=== PATIENT | male | born 1935 | race Caucasian/White ===

== ENCOUNTER 2017-10-24 10:58 | Inpatient (IN) | payer OTHER, MEDICARE ==
[~2017-10-24] VITALS: Ht 182.9 cm; Wt 95.7 kg
--- NOTE | 2017-10-24 11:05 | NUR ---
fever, body aches, and chills since last night. NAD noted, vss, resp even and unlabored. pt was put on monitor, waiting for md hardwick.
[2017-10-24] MEDS ORDERED: ACETAMINOPHEN ES 500 MG TABLET ONE (11:22)
[2017-10-24] MEDS ORDERED: IV NS 0.9% 1,000 ML BAG IV ONE (11:30)
[2017-10-24] MEDS ORDERED: ACETAMINOPHEN ES 500 MG TABLET PO ONE (11:30)
[2017-10-24 11:49] LABS: BASOPHILS # (AUTO) 0.2 /CMM (0.0-0.2); BASOPHILS % (AUTO) 0.7 % (0.0-2.0); EOSINOPHILS % (AUTO) 0.1 % (0.0-6.0); HEMATOCRIT 33 % (39-51); HEMOGLOBIN 11.7 g/dL (13.5-17.5); LYMPHOCYTES # (AUTO) 0.8 /CMM (0.8-4.8); LYMPHOCYTES % (AUTO) 2.7 % (20.0-44.0); MEAN CORPUSCULAR HEMOGLOBIN 36 PG (26.0-33.0); MEAN CORPUSCULAR HGB CONC 35 g/dl (31.0-36.0); MEAN CORPUSCULAR VOLUME 100 fL (80-96); MONOCYTES # (AUTO) 2.6 /CMM (0.1-1.30); MONOCYTES % (AUTO) 9.3 % (2.0-12.0); NEUTROPHILS # (AUTO) 24.8 /CMM (1.8-8.9); NEUTROPHILS % (AUTO) 87.2 % (43.0-81.0); PLATELET COUNT (AUTO) 158 /CMM (150-450); RDW COEFFICIENT OF VARIATION 25.9 (11.5-15.0); RED BLOOD CELL COUNT(AUTO) 3.28 MIL/uL (4.5-6.0); WHITE BLOOD COUNT (AUTO) 28.4 K/uL (4.3-11.0)
[2017-10-24 12:04] LABS: CALCIUM, SERUM 8.8 mg/dL (8.5-10.1); CARBON DIOXIDE 26 mmol/L (21-32); CHLORIDE 106 mmol/L (98-107); CREATININE 0.9 mg/dL (0.6-1.3); GLUCOSE 134 mg/dL (74-106); POTASSIUM 3.8 mmol/L (3.5-5.1); SODIUM SERUM 139 mmol/L (136-145); UREA NITROGEN, BLOOD 16 mg/dL (7-18)
[2017-10-24 12:10] LABS: ALANINE AMINOTRANSFERASE 23 U/L (12-78); ALBUMIN 3.7 g/dL (3.4-5.0); ALKALINE PHOSPHATASE 54 U/L (46-116); ASPARTATE AMINOTRANSFERASE 15 U/L (15-37); BILIRUBIN,DIRECT 0.3 mg/dL (0.0-0.2); BILIRUBIN,TOTAL 2.2 mg/dL (0.2-1.0); INR 1.04 (0.85-1.15); TOTAL PROTEIN, SERUM 6.8 g/dL (6.4-8.2)
[2017-10-24 12:12] LABS: TROPONIN I < 0.017 ng/mL (0.00-0.056)
[2017-10-24 12:12] LABS: APPEARANCE,URINE Clear (CLEAR); BILIRUBIN,URINE SMALL (NEGATIVE); BLOOD, URINE Negative Ery/uL (NEGATIVE); KETONES,URINE Negative (NEGATIVE); LEUKOCYTE ESTERASE ,URINE Negative (NEGATIVE); NITRITE, URINE Negative (NEGATIVE); PH,URINE 8.5 (5.0-8.0); PROTEIN,URINE Trace mg/dl (NEGATIVE); UGLUCOSE Negative (NEGATIVE)
[2017-10-24 12:14] LABS: COLOR,URINE DARK YELLOW (YELLOW)
[2017-10-24 12:20] LABS: MUCUS,URINE Few /LPF (None Seen)
[2017-10-24 12:22] LABS: BACTERIA,URINE None seen /HPF (None Seen); RBC,URINE 0-2 /HPF (0-2); SQUAMOUS EPITHELIAL CELL,UR Few /HPF (None Seen); WBC,URINE 0-3 /HPF (0-3)
--- NOTE | 2017-10-24 12:56 | NUR ---
CALLED [employer] GOLF CADDY WAS PAGED.
[2017-10-24] MEDS ORDERED: PIPERACILLIN /TAZOBACTAM 3.375 G in IV D5W 50 ML IV ONE (13:00)
[2017-10-24] MEDS ORDERED: PIPERACILLIN /TAZOBACTAM 3.375 G VIAL IV ONE (13:17)
[2017-10-24 14:17] LABS: BAND % (MANUAL) 2 % (0.0-5.0); LYMPHOCYTES % (MANUAL) 8 % (16-48); MONOCYTES % (MANUAL) 3 % (0-11.0); NEUTROPHILS % (MANUAL) 87 (42-76)
[2017-10-24] MEDS ORDERED: ALLO300T2 PO (15:17)
--- NOTE | 2017-10-24 15:44 | NUR ---
[place] () [phone] (home) [phone] (cell)
[2017-10-24] MEDS ORDERED: ZOLPIDEM TARTRATE 5 MG TABLET PO PRN (16:00)
[2017-10-24] MEDS ORDERED: HYDROCODONE/APAP 5/325MG 1 EACH TABLET PO PRN (16:00)
[2017-10-24] MEDS ORDERED: MAG HYDROX/AL HYDROX/SIMETH 30 ML UDC PO PRN (16:00)
[2017-10-24] MEDS ORDERED: ACETAMINOPHEN 325 MG TABLET PO PRN (16:00)
[2017-10-24] MEDS ORDERED: MAGNESIUM HYDROXIDE 30 ML UDC PO PRN (16:00)
[2017-10-24] MEDS ORDERED: Z GUARD REMEDY 2 OZ OINT TP PRN (16:00)
[2017-10-24] MEDS ORDERED: ONDANSETRON HCL/PF 4 MG/2 ML VIAL IVP PRN (16:00)
--- NOTE | 2017-10-24 16:45 | NUR ---
APPLIED ANTHROPOLOGIST NOTES RECEIVED REPORT FROM RASHARD CHANDLER FROM ER.PATIENT RECEIVED IN ROOM .BRP WITH STEADY GATE.AXOX4.NO SOB NO DISTRESS NOTED .ON TELE MONITOR WITH SR OF 68.IV ON LAC #18.ASSESSMENT DONE .BED IS LOCKED AND IN LOW POSITION.SRX3.CALL LIGHT IN REACH WILL CONTINUE TO MONITOR.
[2017-10-24] MEDS: PIPERACILLIN /TAZOBACTAM 4.5 G in IV NS 0.9% 50 ML IV SCH ×2 (18:12→23:04)
[2017-10-24] MEDS: IV NS 0.9% 1,000 ML IV PRN (18:14)
--- NOTE | 2017-10-24 19:36 | NUR ---
RN SHIFT END NOTE NO CHANGES FROM ADMISSION.WILL ENDORSE TO PM NURSE FOR FOLLOW UP.
[2017-10-24 19:43] VITALS: BP 93/58
[2017-10-24 20:00] VITALS: BP 101/39
[2017-10-25] VITALS: BP 103/56
[2017-10-25 04:00] VITALS: BP 93/43
[2017-10-25] MEDS: IV NS 0.9% 1,000 ML IV PRN (05:09)
[2017-10-25] MEDS: PIPERACILLIN /TAZOBACTAM 4.5 G in IV NS 0.9% 50 ML IV SCH ×3 (05:09→17:10)
[2017-10-25 06:08] LABS: BASOPHILS # (AUTO) 0.1 /CMM (0.0-0.2); BASOPHILS % (AUTO) 0.3 % (0.0-2.0); EOSINOPHILS % (AUTO) 0.2 % (0.0-6.0); HEMATOCRIT 29 % (39-51); HEMOGLOBIN 9.4 g/dL (13.5-17.5); LYMPHOCYTES # (AUTO) 1.3 /CMM (0.8-4.8); MEAN CORPUSCULAR HEMOGLOBIN 34 PG (26.0-33.0); MEAN CORPUSCULAR HGB CONC 33 g/dl (31.0-36.0); MEAN CORPUSCULAR VOLUME 105 fL (80-96); MONOCYTES # (AUTO) 1.6 /CMM (0.1-1.30); MONOCYTES % (AUTO) 8.8 % (2.0-12.0); NEUTROPHILS # (AUTO) 15.3 /CMM (1.8-8.9); NEUTROPHILS % (AUTO) 83.7 % (43.0-81.0); PLATELET COUNT (AUTO) 133 /CMM (150-450); RDW COEFFICIENT OF VARIATION 27.8 (11.5-15.0); RED BLOOD CELL COUNT(AUTO) 2.76 MIL/uL (4.5-6.0); WHITE BLOOD COUNT (AUTO) 18.3 K/uL (4.3-11.0)
[2017-10-25 06:45] LABS: CHOLESTEROL 80 mg/dL (<200); HDL CHOLESTEROL 36 mg/dL (40-60); LDL 39 mg/dL (0-99); TRIGLYCERIDES 45 mg/dL (30-150)
[2017-10-25 06:47] LABS: ALANINE AMINOTRANSFERASE 31 U/L (12-78); ALBUMIN 2.8 g/dL (3.4-5.0); ALKALINE PHOSPHATASE 36 U/L (46-116); ASPARTATE AMINOTRANSFERASE 24 U/L (15-37); BILIRUBIN,TOTAL 1.9 mg/dL (0.2-1.0); CALCIUM, SERUM 7.5 mg/dL (8.5-10.1); CARBON DIOXIDE 26 mmol/L (21-32); CHLORIDE 107 mmol/L (98-107); CREATININE 0.9 mg/dL (0.6-1.3); GLUCOSE 103 mg/dL (74-106); MAGNESIUM 1.7 mg/dL (1.8-2.4); PHOSPHORUS 2.8 mg/dL (2.5-4.9); POTASSIUM 3.7 mmol/L (3.5-5.1); SODIUM SERUM 139 mmol/L (136-145); TOTAL PROTEIN, SERUM 5.6 g/dL (6.4-8.2); UREA NITROGEN, BLOOD 17 mg/dL (7-18)
[2017-10-25 06:49] LABS: IRON, SERUM 19 ug/dl (50-175); TOTAL IRON BINDING CAPACITY 165 ug/dl (250-450)
--- NOTE | 2017-10-25 07:15 | NUR ---
RN ANTOLIN INITIAL NOTES RECEIVED REPORT AND PT FROM PM NURSE. PT RESTING IN BED WITH NO ACUTE DISTRESS, PT AWAKE AND ALERT X4 AT THIS TIME GREEK SPEAKING, ON 2LITERS NASAL CANULA SATURING ABOVE 97%, ON CAMPUS RECRUITER SINUS RHYTHM WITH HR 65, PATIENT HAS LEFT ANTECUBITAL IV SITE 18 GAUGE RUNNING NORMAL SALINE @ 75 ML/HR WITH NO SIGNS AND SYMPTOMS OF INFILTRATION OR REDNESS, ALL SAFETY MEASURES INITIATED, SIDE RAILS X2, BED LOW AND LOCKED, CALL LIGHT WITHIN REACH, WILL CONTINUE TO MONITOR.
[2017-10-25 08:00] VITALS: BP 94/42
[2017-10-25] MEDS: Magnesium 1GM/D5W 100ML PREMIX 100 ML IV SCH ×2 (11:44→13:35)
[2017-10-25 12:00] VITALS: BP 94/45
[2017-10-25 16:00] VITALS: BP 119/35
--- NOTE | 2017-10-25 16:35 | NUR ---
RN ANTOLIN NOTES PT IS COMPLAINING OF LEFT FOOT LOWER EXTREMITY BELOW THE KNEE REDNESS, SWELLING AND WARM TO TOUCH, SPOKE WITH DR MANCIA AND SAID OR ORDER US DOPPLER TO RULE OUT DVT AND ALSO VANCO 1 G PER PHARMACY TO DOSE, WILL CONTINUE TO MONITOR PT.
[2017-10-25] MEDS ORDERED: FEE PK DOSING 1 MIN EA MC ONE (16:41)
[2017-10-25] MEDS: VANCOMYCIN 1 GM in IV D5W 250 ML IV SCH (17:19)
--- NOTE | 2017-10-25 18:43 | NUR ---
RN ANTOLIN ENDING NOTES PATIENT IS STABLE WITH NO ACUTE CHANGES OR DISTRESS NOTED, ALL DUE MEDS GIVEN, ALL NEEDS MET, WILL CONTINUE TO MONITOR PATIENT AND CONTINUITY OF CARE.
--- NOTE | 2017-10-25 19:30 | NUR ---
RN NOTES RECEIVED PT AWAKE ON BED CALM AND COOPERATIVE. NO ACUTE RESP DISTRESS. DENIES PAIN. PT IS READING BOOK AT THE BED. AOX 4 ABLE TO MAKE KNOWN NEEDS. VERBALIZED UNDERSTANDING OF CARE. SR ON TELE MONITOR. IV SITE ON LAC G 18 RUNNING WITH NS @ 75 CC/HR AND VANCOMYCIN ONGOING AT THIS TIME. TEMP 100.9 RECHECKED ITS 100.3 ENCOURAGED PT TO DRINK PLENTY OF WATER AND COOLING MEASURES PROVIDED TO PATIENT. PT IS CLEANED AND DRY. INDEPENDENT TO MOBILITY. REMINDED TO USED CALL LIGHT FOR ASSISTANCE. CALL LIGHT KEPT WITHIN EASY REACH. WILL CONTINUE TO MONITOR.
[2017-10-25 20:00] VITALS: BP 122/53
[2017-10-25] MEDS: CEFTRIAXONE 1 G in IV D5W 50 ML IV SCH (20:58)
[2017-10-26] VITALS: BP 102/38
[2017-10-26] MEDS: IV NS 0.9% 1,000 ML IV PRN (02:42)
[2017-10-26 04:00] VITALS: BP 116/66
[2017-10-26] MEDS: VANCOMYCIN 1 GM in IV D5W 250 ML IV SCH ×2 (05:17→18:12)
--- NOTE | 2017-10-26 06:15 | NUR ---
RN NOTES PT ASLEEP WELL OVERNIGHT WOKE UP AT TIMES AND READ BOOKS. AOX4 CALM AND VERY NICE PATIENT. NO SIGNIFICANT CHANGE OF CONDITION THROUGHOUT THE SHIFT. TMAX 100.8 LATEST TEMP WAS 98.5. DENIES PAIN, NO SOB SATURATION 94% IN ROOM AIR. AMBULATE TO THE BATHROOM. USED CALL LIGHT FOR ASSISTANCE. WILL ENDORSED CONTINUITY OF CARE TO AM NURSE, POSSIBLE D/C TODAY PER MD.
--- NOTE | 2017-10-26 07:30 | NUR ---
ANTOLIN RN AM NOTES RECEIVED PT AWAKE IN BED, AO X 4, ON RA, NO ACUTE RESP DISTRESS. ABLE TO MAKE KNOWN NEEDS. PER FISH FRYER SUDDENLY HAD AFIB ON MONITOR. AWARE, PT WITH MINIMAL CHEST PAIN 07/11. MONITOR READS AFIB HR 120s. IV SITE ON LAC G 18 RUNNING WITH NS @ 75 CC/HR, SITE CLEAR. AFEBRILE, INDEPENDENT OF BED MOBILITY, ON REGULAR DIET, BRP, DISCUSSED POC. VERBALIZED UNDERSTANDING. REMINDED TO USED CALL LIGHT FOR ASSISTANCE. CALL LIGHT KEPT WITHIN EASY REACH. BED LOW LOCKED, WILL CONTINUE TO MONITOR.
[2017-10-26 07:32] LABS: BASOPHILS % (AUTO) 0.1 % (0.0-2.0); EOSINOPHILS % (AUTO) 2.7 % (0.0-6.0); HEMATOCRIT 30 % (39-51); HEMOGLOBIN 9.8 g/dL (13.5-17.5); LYMPHOCYTES # (AUTO) 2.2 /CMM (0.8-4.8); LYMPHOCYTES % (AUTO) 19.8 % (20.0-44.0); MEAN CORPUSCULAR HEMOGLOBIN 34 PG (26.0-33.0); MEAN CORPUSCULAR HGB CONC 32 g/dl (31.0-36.0); MEAN CORPUSCULAR VOLUME 105 fL (80-96); MONOCYTES # (AUTO) 1.3 /CMM (0.1-1.30); MONOCYTES % (AUTO) 11.8 % (2.0-12.0); NEUTROPHILS # (AUTO) 7.1 /CMM (1.8-8.9); NEUTROPHILS % (AUTO) 65.6 % (43.0-81.0); PLATELET COUNT (AUTO) 133 /CMM (150-450); RDW COEFFICIENT OF VARIATION 27.7 (11.5-15.0); WHITE BLOOD COUNT (AUTO) 10.9 K/uL (4.3-11.0)
[2017-10-26 07:33] LABS: CALCIUM, SERUM 7.8 mg/dL (8.5-10.1); CARBON DIOXIDE 26 mmol/L (21-32); CHLORIDE 108 mmol/L (98-107); CREATININE 0.8 mg/dL (0.6-1.3); GLUCOSE 117 mg/dL (74-106); MAGNESIUM 2.1 mg/dL (1.8-2.4); POTASSIUM 3.3 mmol/L (3.5-5.1); SODIUM SERUM 141 mmol/L (136-145); UREA NITROGEN, BLOOD 11 mg/dL (7-18)
--- NOTE | 2017-10-26 07:45 | NUR ---
RN NOTES 0700 INFORMED BY TRACK TEMPLATE MAKER THAT PT CONVERTED TO A-FIB 120'S INFORMED CHARGE NURSE SOON AND SHE WILL INFORMED CARDIOLOGY ABOUT IT, DR. MANCIA CAME TO THE FLOOR AND REPORTED ABOUT THE A-FIB RHYTHM , MD SPOKE TO PATIENT AND PLACED AN ORDER.
[2017-10-26 08:00] VITALS: BP 91/51
[2017-10-26] MEDS ORDERED: POTASSIUM CHLORIDE 20 MEQ TAB.PRT.SR PO ONE (08:30)
--- NOTE | 2017-10-26 09:30 | NUR ---
ANTOLIN RN NOTES DUE MEDS GIVEN.
[2017-10-26] MEDS ORDERED: AMIODARONE 150 MG in IV D5W 100 ML IV ONE (10:00)
[2017-10-26] MEDS ORDERED: AMIODARONE 900 MG in IV D5W 500 ML IV PRN ×2 (10:00→12:07)
--- NOTE | 2017-10-26 11:30 | NUR ---
ANTOLIN RN NOTES AMIDARONE IV BOLUS STARTED. NOT GIVEN ON TIME.. MED JUST DELIVERED.
[2017-10-26] MEDS: ENOXAPARIN SODIUM 100 MG/ML DISP.SYRIN SQ SCH ×2 (11:31→20:15)
[2017-10-26 12:00] VITALS: BP_SYST 103; BP_SYST 94; BP_DIAS 52; BP_DIAS 58
--- NOTE | 2017-10-26 13:08 | NUR ---
ANTOLIN RN NOTES AMIDARONE IV DRIP AT 1MG/MIN = 33.3 ML/HR STARTED.
[2017-10-26] MEDS: SOD FERRIC GLUC 125 MG in IV NS 0.9% 100 ML IV SCH (14:52)
[2017-10-26 16:00] VITALS: BP_SYST 114; BP_DIAS 48; BP_DIAS 50
[2017-10-26] MEDS: LACTOBACILLUS RHAMNOSUS GG 1 EACH CAP.SPRINK PO SCH (18:09)
--- NOTE | 2017-10-26 19:22 | NUR ---
ANTOLIN RN CLOSING NOTES PT AWAKE, RESTING IN BED, AO X 4, AT BEDSIDE. ON RA, NO ACUTE RESP DISTRESS. MONITOR READS AFIB HR 80s. LAC G 18 WITH AMIO DRIP AT 1MG/MIN RUNNING CHANGED TO 0.5 MG/MIN ENDORSED TO SHARA CHANDLER. RT AC G20 ONGOING VANCO IV. BOTH SITES CLEAR. AFEBRILE, INDEPENDENT OF BED MOBILITY, ON REGULAR DIET, BRP, REMINDED TO USED CALL LIGHT FOR ASSISTANCE. CALL LIGHT KEPT WITHIN EASY REACH. BED LOW LOCKED, ENDORSED TO SHARA CHANDLER FOR DIANE. STILL NEEDS TO COLLECT SPECIMEN FOR OBS.
[2017-10-26 20:00] VITALS: BP 99/57
[2017-10-26] MEDS: CEFTRIAXONE 1 G in IV D5W 50 ML IV SCH (20:14)
[2017-10-27] VITALS: BP 109/54
[2017-10-27 04:00] VITALS: BP 121/56
[2017-10-27 06:34] LABS: BASOPHILS % (AUTO) 0.3 % (0.0-2.0); EOSINOPHILS % (AUTO) 3.7 % (0.0-6.0); HEMATOCRIT 32 % (39-51); HEMOGLOBIN 10.5 g/dL (13.5-17.5); LYMPHOCYTES # (AUTO) 2.3 /CMM (0.8-4.8); LYMPHOCYTES % (AUTO) 22.1 % (20.0-44.0); MEAN CORPUSCULAR HEMOGLOBIN 34 PG (26.0-33.0); MEAN CORPUSCULAR HGB CONC 33 g/dl (31.0-36.0); MEAN CORPUSCULAR VOLUME 104 fL (80-96); MONOCYTES # (AUTO) 0.9 /CMM (0.1-1.30); MONOCYTES % (AUTO) 9.1 % (2.0-12.0); NEUTROPHILS # (AUTO) 6.6 /CMM (1.8-8.9); NEUTROPHILS % (AUTO) 64.8 % (43.0-81.0); PLATELET COUNT (AUTO) 145 /CMM (150-450); RDW COEFFICIENT OF VARIATION 26.8 (11.5-15.0); RED BLOOD CELL COUNT(AUTO) 3.08 MIL/uL (4.5-6.0); WHITE BLOOD COUNT (AUTO) 10.2 K/uL (4.3-11.0)
[2017-10-27 06:48] LABS: TROPONIN I < 0.017 ng/mL (0.00-0.056)
[2017-10-27 06:49] LABS: ALANINE AMINOTRANSFERASE 28 U/L (12-78); ALBUMIN 2.9 g/dL (3.4-5.0); ALKALINE PHOSPHATASE 40 U/L (46-116); ASPARTATE AMINOTRANSFERASE 16 U/L (15-37); BILIRUBIN,TOTAL 0.6 mg/dL (0.2-1.0); CALCIUM, SERUM 7.9 mg/dL (8.5-10.1); CARBON DIOXIDE 24 mmol/L (21-32); CHLORIDE 106 mmol/L (98-107); CREATININE 0.8 mg/dL (0.6-1.3); GLUCOSE 99 mg/dL (74-106); MAGNESIUM 1.9 mg/dL (1.8-2.4); PHOSPHORUS 2.8 mg/dL (2.5-4.9); POTASSIUM 3.7 mmol/L (3.5-5.1); SODIUM SERUM 140 mmol/L (136-145); TOTAL PROTEIN, SERUM 6.2 g/dL (6.4-8.2); UREA NITROGEN, BLOOD 10 mg/dL (7-18)
[2017-10-27] MEDS: VANCOMYCIN 1 GM in IV D5W 250 ML IV SCH (07:08)
[2017-10-27 08:00] VITALS: BP 107/52
--- NOTE | 2017-10-27 08:00 | NUR ---
TD/RN AM SHIFT INITIAL NOTES RECEIVED PT AWAKE SITTING IN BED, PT A/O X 4, DENIES ANY SYMPTOMS, NO ACUTE CHANGE OF CONDITION NOTED. PT ON ROOM AIR SATURATING @ 99%, LUNG SOUNDS CLEAR. WITH ON GOING AMIODARONE DRIP @ 0.5MG/MIN, SINUS RHYTHM TO BE DISCONTINUED @ 1308 TODAY, PT'S RHYTHM HAD BEEN CONVERTED TO SINUS LAST NIGHT @ 2214 PER PM NURSE REPORT. IV SITES PATENT WITH NO S/S OF INFECTION. SCHEDULED AM MEDS TO BE GIVEN. CL WITHIN REACHED AND SAFETY MAINTAINED. ON GOING MONITORING. Addendum: 10/27/17 at 1005 by JAS REN RN ADDENDUM: NOTED LEFT LOWER LEG, MINIMUM REDNESS (DISCOLORED), NO OBVIOUS SWELLING. PT DENIES PAIN, OR WARMNESS.
[2017-10-27] MEDS: LACTOBACILLUS RHAMNOSUS GG 1 EACH CAP.SPRINK PO SCH ×2 (08:19→16:29)
[2017-10-27] MEDS: ENOXAPARIN SODIUM 100 MG/ML DISP.SYRIN SQ SCH (08:20)
--- NOTE | 2017-10-27 08:45 | NUR ---
TD/RN ROUNDS - DR. MANCIA PT SEEN & EXAMINED BY DR. MANCIA, NO NEW ORDERS RECEIVED, PER MD PT WILL BE DISCHARGE HOME LATER TODAY. MONITORING CONTINUED.
--- NOTE | 2017-10-27 09:00 | NUR ---
TD/RN ROUNDS - DR. HUNG PT SEEN & EXAMINED BY DR. HUNG, WITH VERBAL ORDERS RECEIVED TO DISCONTINUE AMIODARONE DRIP, ORDER NOTED AND CARRIED. PT ON SINUS RHYTHM, MONITORING CONTINUED.
[2017-10-27] MEDS ORDERED: ASPIRIN 81 MG TAB.CHEW PO SCH (09:30)
[2017-10-27] MEDS ORDERED: PANTOPRAZOLE 40 MG TABLET.DR PO SCH (09:30)
[2017-10-27] MEDS: DRONEDARONE HYDROCHLORIDE 400 MG TABLET PO SCH ×2 (09:55→16:29)
[2017-10-27] MEDS: SOD FERRIC GLUC 125 MG in IV NS 0.9% 100 ML IV SCH (14:43)
[2017-10-27 16:00] VITALS: BP 113/54
--- NOTE | 2017-10-27 16:42 | NUR ---
MS1/PHILOSOPHY LECTURER - HOME ALL NEEDS MET. DISCHARGE INSTRUCTIONS GIVEN TO PT, VERBALIZED UNDERSTANDING. DISCHARGE DOCUMENTS AND PRESCRIPTION GIVEN TO PT. PRESCRIPTION WAS FAXED TO PT'S PREFERRED PHARMACY AND MEDICATION WILL BE READY FOR PT. IV SITES REMOVED, PRESSURE DRESSING APPLIED, NO S/S OF INFECTION. ID BAND REMOVED. PT LEFT [facility] UNIT AMBULATORY WITH STEADY GAIT ACCOMPANIED BY PT'S TO AN AWAITING PRIVATE CAR.
[2017-10-27] MEDS ORDERED: VANCOMYCIN 1.25 GM in IV D5W 500 ML IV SCH (18:00)
== END 2017-10-27 16:46 | disposition home or self-care (01) | DRG 872 ==
LOC: ER 11:07 → TELE-TD 16:19 → MEDSG1 10-27 09:18
PROVIDERS: ADMIT Internal Medicine; ATTEND Internal Medicine
DX: A41.9 Sepsis, unspecified organism (principal); L03.116 Cellulitis of left lower limb; D68.59 Other primary thrombophilia; K80.20 Calculus of gallbladder without cholecystitis without obstruction; D72.829 Elevated white blood cell count, unspecified; D50.9 Iron deficiency anemia, unspecified; E87.6 Hypokalemia; E80.6 Other disorders of bilirubin metabolism; M10.9 Gout, unspecified; I48.0 Paroxysmal atrial fibrillation; K76.0 Fatty (change of) liver, not elsewhere classified
CPT/HCPCS: 36415; 71045-TC; 76705-TC; 80048-TC; 80053-TC; 80061-TC; 80076-TC; 80202-TC; 81000-TC; 82306; 83540-TC; 83605-TC; 83690-TC; 83735-TC; 84100-TC; 84439-TC; 84484-TC; 85025-TC; 85652-TC; 85730-TC; 86140-TC; 87040-TC; 87081-TC; 87086-TC; 93307-TC; 93971-TC; A4216; A4606; J0282; J0696; J1650; J2543; J2916; J3370; J3475; J7030; J7060; Z7610

== ENCOUNTER 2017-10-30 12:15 | Outpatient (CLI) | payer OTHER, MEDICARE ==
[2017-10-30 12:05] VITALS: BP 118/66
[~2017-10-30 12:15] MED LIST: ALLO300T2 PO
== END 2017-10-30 23:59 | disposition home or self-care (01) ==
LOC: MSC 12:15
PROVIDERS: ATTEND Internal Medicine
DX: L03.116 Cellulitis of left lower limb (principal); M10.9 Gout, unspecified; I48.91 Unspecified atrial fibrillation; D68.59 Other primary thrombophilia